=== PATIENT | female | born 2005 | race Two or more races ===

== ENCOUNTER 2024-04-11 20:29 | Emergency (ER) | payer OTHER, SELFPAY ==
[2024-04-11 20:34] VITALS: BP 104/59; BP 109/76; PULSE 107; PULSE 110; RESP 20; TEMP 38.1; O2SAT 98; O2SAT 99; BMI 22.1
[2024-04-11] MEDS: Acetaminophen 325 MG TABLET 650 MG PO (20:45)
[2024-04-11 20:54] LABS: MANUAL DIFF FLAG NO
[2024-04-11 20:59] LABS: Basophils Percent Auto 0.2 % (0-2); Eosinophils Percent Auto 0.4 % (0-4); Hematocrit 36.5 % (37.0-47.0); Hemoglobin 12.7 g/dl (12.0-16.0); Imm Gran Abs Auto 0.03 X10*3/uL (0.00-0.03); Imm Gran Pct Auto 0.3 % (0.0-0.4); Lymphocytes Absolute Auto 0.6 X10*3/uL (1.2-4.9); Lymphocytes Percent Auto 5.6 % (20-40); Mean Corpuscular HGB Conc 34.8 g/dl (31.0-35.0); Mean Corpuscular Hemoglobin 27.1 pg (27.0-33.0); Mean Platelet Volume 10.6 fL (9.4-12.3); Monocytes Absolute Auto 0.4 X10*3/uL (0.1-1.2); Monocytes Percent Auto 4.3 % (2-11); Neutrophils Absolute Auto 9.2 x10*3/uL (2.0-8.3); Neutrophils Percent Auto 89.2 % (45-73); Platelet Count 227 X10*3/uL (160-400); Red Blood Count 4.68 X10*6/uL (4.20-5.50); Red Cell Distribution Width 13.8 % (11.0-16.0); White Blood Count 10.3 X10*3/uL (4.8-10.8)
[2024-04-11 21:16] LABS: Alanine Aminotransferase 16 U/L (0-31); Albumin Level 4.2 g/dL (3.5-5.0); Alkaline Phosphatase 62 U/L (39-117); Anion Gap 13 (12-20); Aspartate Amino Transferase 31 U/L (5-31); Bilirubin Total 0.2 mg/dL (0.0-1.0); Blood Urea Nitrogen 8 mg/dL (9-16); Calcium 8.7 mg/dL (8.4-10.2); Carbon Dioxide 21 mmol/L (22-29); Chloride 107 mmol/L (96-108); Creatinine Clr Calc Pharmacy 110.1; Estimated Glomerular Filt Rate > 60; Glucose Random 114 mg/dL (60-115); Potassium 3.4 mmol/L (3.3-5.1); Sodium 138 mmol/L (135-145); Total Protein 7.5 g/dL (6.5-8.0)
[2024-04-11 21:34] LABS: Influenza A PCR POSITIVE (Negative); Influenza B PCR NEGATIVE (Negative); Resp Syncy Virus RNA Qual PCR NEGATIVE (Negative); SARS COV2 PCR INHOUSE NEGATIVE (Negative)
[2024-04-11 22:25] VITALS: TEMP 37.4
[2024-04-11] MEDS: hydrOXYzine HCL 25 MG TABLET PO (22:26)
[2024-04-11] MEDS: Benzonatate 100 MG CAPSULE 200 MG PO (22:27)
--- NOTE | 2024-04-11 22:30 | ED.URI ---
HPI - URI/Sore Throat General Chief Complaint: Upper Respiratory Symptoms Stated Complaint: N/V, flu like symptoms Time Seen by Provider: 04/11/24 22:00 Source: patient Mode of arrival: ambulatory Limitations: no limitations History of Present Illness ED Provider: HPI Narrative: Patient's coughing for last 3 days woke up today with body aches nausea running nose headache crying anxious on arrival patient is crying as she been having headache Related Data Previous Rx's ?Medication ?Instructions ?Recorded benzonatate 200 mg capsule 200 mg PO TID PRN cough #30 caps 04/11/24 ibuprofen 600 mg tablet 600 mg PO Q6H PRN fever or pain 04/11/24 #30 tabs Allergies Allergy/AdvReac Type Severity Reaction Status Date / Time No Known Allergies Allergy Verified 04/11/24 20:36 Review of Systems Review of Systems: Yes all other systems are reviewed and are negative [facility] Past Medical History Medical History No known health problems Social History Social History Smoked in Last 30 Days: No Use of substances other than those prescribed or required for medical reasons: Yes Substance Use Type: Marijuana Advance Directives: No Advance Directives Information Provided: No Physical Exam Vital Signs: Vital Signs: Last Vital Signs Temp 98.9 F 04/11/24 23:09 Pulse 98 04/11/24 23:09 Resp 18 04/11/24 23:09 BP 112/58 L 04/11/24 23:09 Pulse Ox 96 04/11/24 23:09 O2 Del Method Room Air 04/11/24 23:09 BMI result Body Mass Index 22.1 Appearance: Alert. Oriented X3. No acute distress. ENT: Pharynx normal. Oral Mucosa moist Neck: Normal inspection. Neck supple. CVS: Normal heart rate and rhythm. Pulses normal. Respiratory: No respiratory distress. Equal air entry bilateral, no wheezing/rales/rhonchi Skin: Skin warm and dry. Normal skin color. Normal skin turgor. Extremities: No lower extremity edema. Neuro: Oriented X 3. Medications Administered Discontinued Medications Generic Name Dose Route Start Last Admin Trade Name Freq PRN Reason Stop Dose Admin Acetaminophen 650 mg 04/11/24 20:40 04/11/24 20:45 Acetaminophen 325 Mg Tablet PO 04/11/24 20:41 650 mg ONCE ONE Administration Benzonatate 200 mg 04/11/24 22:14 04/11/24 22:27 Benzonatate 100 Mg Capsule PO 04/11/24 22:15 200 mg ONCE ONE Administration Hydroxyzine HCl 25 mg 04/11/24 22:14 04/11/24 22:26 Hydroxyzine Hcl 25 Mg Tablet PO 04/11/24 22:15 25 mg ONCE ONE Administration Ibuprofen 600 mg 04/11/24 22:14 04/11/24 22:26 Ibuprofen 600 Mg Tablet PO 04/11/24 22:15 Not Given ONCE ONE Medical Decision Making Medical Decision Making [facility] Narrative: Patient's influenza a chest x-ray negative with anxiety will discharge patient home on ibuprofen patient already been symptomatic for last 3 days. Will give cough drops Lab Data [facility] Lab Attestation statement: I reviewed the patient's lab results. 04/11/24 20:48 04/11/24 20:48 Labs: Lab Results 04/11/24 Range/Units 20:48 WBC 10.3 (4.8-10.8) X10*3/uL RBC 4.68 (4.20-5.50) X10*6/uL Hgb 12.7 (12.0-16.0) g/dl Hct 36.5 L (37.0-47.0) % MCV 78.0 L (80.0-98.0) fL MCH 27.1 (27.0-33.0) pg MCHC 34.8 (31.0-35.0) g/dl RDW 13.8 (11.0-16.0) % Plt Count 227 (160-400) X10*3/uL MPV 10.6 (9.4-12.3) fL Immature Gran % (Auto) 0.3 (0.0-0.4) % Neut % (Auto) 89.2 H (45-73) % Lymph % (Auto) 5.6 L (20-40) % Stearns % (Auto) 4.3 (2-11) % Eos % (Auto) 0.4 (0-4) % Baso % (Auto) 0.2 (0-2) % Lymph # (Auto) 0.6 L (1.2-4.9) X10*3/uL Stearns # (Auto) 0.4 (0.1-1.2) X10*3/uL Eos # (Auto) 0.0 (0.0-0.4) X10*3/uL Baso # (Auto) 0.0 (0.0-0.2) X10*3/uL Abs Immat Gran (auto) 0.03 (0.00-0.03) X10*3/uL Absolute Neuts (auto) 9.2 H (2.0-8.3) x10*3/uL Absolute Nucleated RBC 0.000 (0.0-0.012) X10*3/uL Nucleated RBC % (auto) 0.0 (0.0-0.2) /100WBC Sodium 138 (135-145) mmol/L Potassium 3.4 (3.3-5.1) mmol/L Chloride 107 (96-108) mmol/L Carbon Dioxide 21 L (22-29) mmol/L Anion Gap 13 (12-20) BUN 8 L (9-16) mg/dL Creatinine 0.68 (0.5-1.4) mg/dL Estim Creat Clear Calc 110.1 Estimated GFR > 60 Random Glucose 114 (60-115) mg/dL Calcium 8.7 (8.4-10.2) mg/dL Total Bilirubin 0.2 (0.0-1.0) mg/dL AST 31 (5-31) U/L ALT 16 (0-31) U/L Alkaline Phosphatase 62 (39-117) U/L Total Protein 7.5 (6.5-8.0) g/dL Albumin 4.2 (3.5-5.0) g/dL Influenza Type A (PCR) POSITIVE A (Negative) Influenza Type B (PCR) NEGATIVE (Negative) RSV RNA Qual (PCR) NEGATIVE (Negative) SARS-CoV-2 RNA (RT-PCR) NEGATIVE (Negative) Discharge Plan Discharge Clinical Impression: Influenza Patient Disposition: Home, Self-Care Instructions: Influenza (ED) Additional Instructions: Drink plenty of fluids Cough drops as prescribed Ibuprofen for pain Prescriptions: New benzonatate 200 mg capsule 200 mg PO TID PRN (Reason: cough) Qty: 30 0RF ibuprofen 600 mg tablet 600 mg PO Q6H PRN (Reason: fever or pain) Qty: 30 0RF Stand Alone Forms: Work/School Release Interventions: ED Discharge Assessment Last Done: 04/11/24 23:09 Discharge Date/Time: 04/11/24 23:16 Print Language: Banglades[place]
[2024-04-11 23:09] VITALS: BP 112/58; PULSE 98; RESP 18; TEMP 37.2; O2SAT 96
== END 2024-04-11 23:16 | disposition home or self-care (01) ==
PROVIDERS: Emergency Provider Internal Medicine
DX: J10.1 Influenza due to other identified influenza virus with other respiratory manifestations (principal); R51.9 Headache, unspecified; Z03.818 Encounter for observation for suspected exposure to other biological agents ruled out
CPT/HCPCS: 0241U; 36415; 80053; 85025; 99283; 99284